=== PATIENT | male | born 1975 | race Caucasian/White ===

== ENCOUNTER 2017-01-22 20:55 | Emergency (ER) | payer BC, OTHER ==
[~2017-01-22] VITALS: Ht 175.3 cm; Wt 89.3 kg
[2017-01-22 20:59] VITALS: TEMP 36.9; Ht 175.3 cm; Wt 89.3 kg
[2017-01-22] MEDS ORDERED: ONDANSETRON INJ 2 MG/ML 2 ML VIAL IV STA (21:09)
[2017-01-22] MEDS ORDERED: GLUCAGON FOR INJ 1 MG VIAL IV ONE (21:09)
[2017-01-22] MEDS ORDERED: SODIUM CHLORIDE 0.9% 1000ML 1,000 ML IV STA (21:09)
[2017-01-22] MEDS ORDERED: GLUCAGON INJ 1 MG in SYRINGE 0 ML IV STA (21:09)
--- NOTE | 2017-01-22 21:15 | EMERGENCY ROOM VISIT NOTE ---
History Report prepared by Victorino: Rey Harris Under the Supervision of: Dr. Luc Jara D.O. First contact with patient: 21:05 Chief Complaint: GI ASSESSMENT Stated Complaint: SPITTING/VOMITING STOMACH ACID, HIC UPS WON'T STOP Nursing Triage Summary: pt c/o acid reflux for a while. reports increased saliva production, ongoing for 2 hours. "it's food related, only happens when I'm eating. it feels like I can' t swallow it all the way down". History of Present Illness The patient is a 41 year old male who presents to the Emergency Room with complaints of persistent acid reflux symptoms that started 2 hours ago. The patient notes that he has a history of acid reflux-like symptoms for the past year. He states that it usually only ever happens after a meal. He will start to spit up and sometimes vomit some bile for 5-10 minutes. His symptoms usually resolve on their own after a few minutes pass. Tonight, he went out to dinner and was eating salad and steak. He notes that he started having the spitting up and vomiting soon after his first bite of steak. He notes he hasn't been able to clear it for the past 2 hours and is still experiencing symptoms. The patient denies abdominal pain at this time. Source of History: patient Onset: 2 hours ago Position: other (GI) Timing: other (persistent) Associated Symptoms: + vomiting, No abdominal pain Note: Other associated symptoms: spitting up Review of Systems See HPI for pertinent positives & negatives. A total of 10 systems reviewed and were otherwise negative. Family History FH: diabetes mellitus FH: hypertension Social History Smoking Status: Never Smoker Marital Status: Housing Status: lives with family Occupation Status: employed Current/Historical Medications No Active Prescriptions or Reported Meds Allergies Coded Allergies: No Known Allergies (Unverified , 01/22/17) Physical Exam Vital Signs Date Time Temp Pulse Resp B/P Pulse Ox O2 Delivery O2 Flow Rate FiO2 01/22/17 21:17 Room Air 01/22/17 20:59 36.9 86 18 131/89 96 Room Air Physical Exam GENERAL: Patient is awake alert, mildly anxious appearing, overall comfortable. EYES: The conjunctivae are clear. The pupils are round and reactive. EARS, NOSE, MOUTH AND THROAT: The nose is without any evidence of any deformity. Mucous membranes are moist tongue is midline NECK: The neck is nontender and supple. RESPIRATORY: Normal respiratory effort is noted there is no evidence of wheezing rhonchi or rales CARDIOVASCULAR: Regular rate and rhythm noted there no murmurs rubs or gallops normal S1 normal S2 GASTROINTESTINAL: The abdomen is soft. Bowel sounds are present in all quadrants. Abdomen is nontender MUSCULOSKELETAL/EXTREMITIES: There is no evidence of gross deformity full range of motion is noted in the hips and shoulders SKIN: There is no obvious evidence of any rash. There are no petechiae, pallor or cyanosis noted. NEUROLOGIC: Patient is awake alert and oriented x3 Medical Decision & Procedures ER Provider Diagnostic Interpretation: X-ray results as stated below per interpretation by me and the radiologist. CHEST ONE VIEW PORTABLE CLINICAL HISTORY: Abdominal pain. COMPARISON STUDY: No previous studies for comparison. FINDINGS: Lung volumes are normal. Lungs are clear. There is no pneumothorax or pleural effusion. Cardiac size is normal. Mediastinal contours are normal. There is no evidence of pulmonary edema. No lucency is identified under the hemidiaphragms to suggest pneumoperitoneum on this exam. IMPRESSION: No acute cardiopulmonary findings. Electronically signed by: Joshua Mackay M.D. 01/22/2017 9:32 PM Dictated Date/Time: 01/22/2017 9:31 PM Laboratory Results 01/22/17 21:17 Red Blood Count 5.14, Mean Corpuscular Volume 87.9, Mean Corpuscular Hemoglobin 31.7, Mean Corpuscular Hemoglobin Concent 36.1, Mean Platelet Volume 9.4, Neutrophils (%) (Auto) 56.1, Lymphocytes (%) (Auto) 28.3, Monocytes (%) (Auto) 9.4, Eosinophils (%) (Auto) 5.6, Basophils (%) (Auto) 0.4, Neutrophils # (Auto) 4.67, Lymphocytes # (Auto) 2.36, Monocytes # (Auto) 0.78, Eosinophils # (Auto) 0.47, Basophils # (Auto) 0.03 01/22/17 21:17 Test 01/22/17 21:17 White Blood Count 8.33 K/uL (4.8-10.8) Red Blood Count 5.14 M/uL (4.7-6.1) Hemoglobin 16.3 g/dL (14.0-18.0) Hematocrit 45.2 % (42-52) Mean Corpuscular Volume 87.9 fL (80-100) Mean Corpuscular Hemoglobin 31.7 pg (25-34) Mean Corpuscular Hemoglobin Concent 36.1 g/dl (32-36) Platelet Count 251 K/uL (130-400) Mean Platelet Volume 9.4 fL (7.4-10.4) Neutrophils (%) (Auto) 56.1 % Lymphocytes (%) (Auto) 28.3 % Monocytes (%) (Auto) 9.4 % Eosinophils (%) (Auto) 5.6 % Basophils (%) (Auto) 0.4 % Neutrophils # (Auto) 4.67 K/uL (1.4-6.5) Lymphocytes # (Auto) 2.36 K/uL (1.2-3.4) Monocytes # (Auto) 0.78 K/uL (0.11-0.59) Eosinophils # (Auto) 0.47 K/uL (0-0.5) Basophils # (Auto) 0.03 K/uL (0-0.2) RDW Standard Deviation 40.0 fL (36.4-46.3) RDW Coefficient of Variation 12.4 % (11.5-14.5) Immature Granulocyte % (Auto) 0.2 % Immature Granulocyte # (Auto) 0.02 K/uL (0.00-0.02) Prothrombin Time 11.7 SECONDS (9.0-12.0) Prothromb Time International Ratio 1.1 (0.9-1.1) Activated Partial Thromboplast Time 28.5 SECONDS (21.0-31.0) Partial Thromboplastin Ratio 1.1 Anion Gap 4.0 mmol/L (3-11) Est Creatinine Clear Calc Drug Dose 109.7 ml/min Estimated GFR () 111.1 Estimated GFR (Non- 95.9 BUN/Creatinine Ratio 13.4 (10-20) Calcium Level 8.8 mg/dl (8.5-10.1) Total Bilirubin 0.4 mg/dl (0.2-1) Direct Bilirubin 0.1 mg/dl (0-0.2) Aspartate Amino Transf (AST/SGOT) 13 U/L (15-37) Alanine Aminotransferase (ALT/SGPT) 20 U/L (12-78) Alkaline Phosphatase 66 U/L (45-117) Total Protein 7.3 gm/dl (6.4-8.2) Albumin 4.2 gm/dl (3.4-5.0) Lipase 222 U/L (73-393) Laboratory results per my review. Medications Administered Medications (Trade) Dose Ordered Sig/Otis Route Start Time Stop Time Status Last Admin Dose Admin Sodium Chloride (Nss 1000ml) 1,000 ml @ 999 mls/hr Q1H1M STAT IV 01/22/17 21:09 01/22/17 22:09 DC 01/22/17 21:31 999 MLS/HR Ondansetron HCl (Zofran Inj) 4 mg NOW STAT IV 01/22/17 21:09 01/22/17 21:11 DC 01/22/17 21:31 4 MG Glucagon (Glucagon Inj) 1 mg ONE ONCE IV 01/22/17 21:09 01/22/17 21:25 DC 01/22/17 21:31 1 MG ED Course 2102: The patient was evaluated in room B10. A complete history and physical examination were performed. 2108: Ordered Glucagon 1 mg IV, Zofran Inj 4 mg IV, NSS 1000 ml @ 999 mls/hr IV. 2113: At this time, I discussed the patient's case with Dr. Silver Carrasco and he agreed to come in to see the patient. 2138: At this time, the patient vomited the foreign body. He started feeling much better after the episode. 2141: At this time, I called back Dr. Silver Carrasco and updated on him on the patient's case saying the he relieved the occlusion. Dr. Sheppard said that he would follow up with the patient in the clinic. 2152: Upon reevaluation, the patient is resting comfortably. I discussed the results and treatment plan with him. He verbalized agreement of the treatment plan. The patient was discharged home. Medical Decision Nursing notes reviewed. The patient is a 41-year-old male who presented to the emergency department for an evaluation of dysphagia. The patient states that over the last 12 months he' s had intermittent episodes of dysphagia. The patient states that he's had esophageal foreign bodies which have been intermittent. The patient states normally these resolve on their own. He presented to the emergency department today after one which did not resolve for over 2 hours. The patient appeared to have difficulty clearing his secretions and was spitting into a emesis bag. I discussed his case with the on-call fishing line winding machine operator. Initially he planned on coming to the emergency department to do an endoscopy on the patient to evaluate the cause of the esophageal foreign body sensation. The patient was treated with IV fluids IV antiemetics and glucagon in the emergency department. He had an episode of emesis which resolved the esophageal foreign body. I discussed the patient's case again with the on-call fishing line winding machine operator. I've encouraged the patient to continue with a clear liquid diet as well as a soft diet. He was also encouraged to start a proton pump inhibitor. He was also encouraged to follow-up with the fishing line winding machine operator as soon as possible but return to the emergency department immediately if symptoms change worsen or the need arises. Consults Time Called: 2109 Consulting Physician: Dr. Sheppard - Gastroenterology [place] Returned Call: 2113 At this time, I discussed the patient's case with Dr. Sheppard and he agreed to come in to see the patient. Additional Consults: Time Called: 2138 Consulted Physician: Dr. Silver Carrasco Returned Call: 2141 Additional Comments: At this time, I called back Dr. Sheppard and updated on him on the patient's case saying the he relieved the occlusion. Dr. Sheppard said that he would follow up with the patient in the clinic. Impression Primary Impression: Esophageal foreign body Additional Impressions: Dysphagia Chest pain Scribe Attestation The scribe's documentation has been prepared under my direction and personally reviewed by me in its entirety. I confirm that the note above accurately reflects all work, treatment, procedures, and medical decision making performed by me. Departure Information Dispostion Home / Self-Care Prescriptions No Active Prescriptions or Reported Meds Referrals No Doctor, Assigned (PCP) Forms HOME CARE DOCUMENTATION FORM, IMPORTANT VISIT INFORMATION Patient Instructions Dysphagia, ED Foreign Body Esophageal Rslv, My [facility] Additional Instructions Call the fishing line winding machine operator in the morning to schedule a follow-up appointment. I would recommend a clear liquid diet or soft diet. Continue all medications as prescribed. Return to the emergency Department immediately if symptoms change worsen or the need arises. I would recommend starting an [id number] proton pump inhibitor such as Prilosec OTC. Problem Qualifiers Primary Impression: Esophageal foreign body Encounter type: initial encounter Qualified Codes: T18.108A - Unspecified foreign body in esophagus causing other injury, initial encounter Additional Impressions: Dysphagia Dysphagia type: unspecified Qualified Codes: R13.10 - Dysphagia, unspecified Chest pain Chest pain type: unspecified Qualified Codes: R07.9 - Chest pain, unspecified
[2017-01-22 21:30] LABS: BASO % 0.4 %; BASO ABS # 0.03 K/uL (0-0.2); COMPLETE YES; EOS % 5.6 %; HEMATOCRIT 45.2 % (42-52); IG% 0.2 %; LYMPH % 28.3 %; LYMPH ABS # 2.36 K/uL (1.2-3.4); MEAN CELL VOLUME 87.9 fL (80-100); MEAN CORPUSCULAR HEMOGLOBIN 31.7 pg (25-34); MEAN CORPUSCULAR HGB CONC 36.1 g/dl (32-36); MEAN PLATELET VOLUME 9.4 fL (7.4-10.4); MONO % 9.4 %; NEUT % 56.1 %; PLATELET COUNT 251 K/uL (130-400); RED BLOOD COUNT 5.14 M/uL (4.7-6.1); WHITE BLOOD COUNT 8.33 K/uL (4.8-10.8)
--- NOTE | 2017-01-22 21:34 | DIAGNOSTIC IMAGING REPORT ---
CHEST ONE VIEW PORTABLE CLINICAL HISTORY: Abdominal pain. COMPARISON STUDY: No previous studies for comparison. FINDINGS: Lung volumes are normal. Lungs are clear. There is no pneumothorax or pleural effusion. Cardiac size is normal. Mediastinal contours are normal. There is no evidence of pulmonary edema. No lucency is identified under the hemidiaphragms to suggest pneumoperitoneum on this exam. IMPRESSION: No acute cardiopulmonary findings. Electronically signed by: Joshua Mackay M.D. 01/22/2017 9:32 PM Dictated Date/Time: 01/22/2017 9:31 PM
[2017-01-22 21:37] LABS: INR 1.1 (0.9-1.1); PARTIAL THROMBOPLASTIN RATIO 1.1; PROTHROMBIN TIME (PATIENT) 11.7 SECONDS (9.0-12.0)
[2017-01-22] MEDS ORDERED: ATROPINE SULFATE 0.1 MG/ML 5ML SYR IV PRN (21:45)
[2017-01-22] MEDS ORDERED: FENTANYL CITRATE INJ 50 MCG/1 ML 2 ML VIAL IV PRN (21:45)
[2017-01-22] MEDS ORDERED: EpHEDrine SULFATE INJ 50 MG/ML AMP IV PRN (21:45)
[2017-01-22] MEDS ORDERED: ONDANSETRON INJ 2 MG/ML 2 ML VIAL IV PRN (21:45)
[2017-01-22 21:47] LABS: BUN/CREATININE RATIO 13.4 (10-20); CREATININE 0.97 mg/dl (0.60-1.40); POTASSIUM 3.5 mmol/L (3.5-5.1)
[2017-01-22 22:04] LABS: CALCIUM 8.8 mg/dl (8.5-10.1)
[2017-01-22 22:16] VITALS: BP 136/91; PULSE 85; O2SAT 97
== END 2017-01-22 22:18 | disposition home or self-care (01) ==
LOC: C.EDB 20:57
DX: T18.108A Unspecified foreign body in esophagus causing other injury, initial encounter (principal); R13.10 Dysphagia, unspecified; R07.9 Chest pain, unspecified; K21.9 Gastro-esophageal reflux disease without esophagitis; R11.10 Vomiting, unspecified; Z82.49 Family history of ischemic heart disease and other diseases of the circulatory system; Z83.3 Family history of diabetes mellitus; X58.XXXA Exposure to other specified factors, initial encounter

== ENCOUNTER → 2017-02-06 | Outpatient (CLI) | payer BC ==
--- NOTE | 2017-02-06 12:04 | DIAGNOSTIC IMAGING REPORT ---
VIDEO SWALLOW HISTORY: Dysphagia R13.13 TECHNIQUE: Video fluoroscopic evaluation of swallowing was performed in the AP and lateral projections by the speech pathology staff. The patient is fed nectar-thick and thin liquid barium, a barium coated wafer, and barium pudding. FLUOROSCOPY TIME: 1.5 minutes. COMPARISON STUDY: None. FINDINGS: There is normal hyoid excursion and epiglottic deflection. No significant penetration or aspiration identified. Swallowing function is within normal limits. IMPRESSION: 1. Normal study. 2. Please see the speech pathologist report for detailed findings and recommendations. Electronically signed by: Javier Mccabe M.D. 02/06/2017 12:02 PM Dictated Date/Time: 02/06/2017 12:02 PM
--- NOTE | 2017-02-06 13:05 | SWALLOWING EVALUATION ---
REFERRING SPEECH PATHOLOGIST: n/a HISTORY: This 42 year-old male was referred for a VFSS at [facility] in order assess oral-pharyngeal swallowing. The patient presented to the ED with esophageal foreign body on 01/22/17. It eventually cleared with emesis; however, the patient reported that this has been occurring intermittently for ~1 year. When his esophagus is impacted the patient experiences excessive salivation, hiccoughs, and emeses. The patient has no other significant PMH. He denies feeling heartburn or other typical s/s GERD, but was placed on a PPI recently and has had no episodes of esophageal obstruction since then. Currently the patient's diet level is regular. PROCEDURE: The patient was seen in the Radiology Department of [facility] for the VFSS. Cursory examination of the oral cavity revealed adequate dentition. Movement of the articulators was WNL. The patient was seated on a stool and was viewed in both the Anterior-Posterior (A-P) and Lateral planes. Volitional phonation exercises completed in the A-P plane revealed bilateral vocal fold movement and vocal intensity within functional limits. In the lateral plane, the patient was given the following boluses: 1 tsp. thin liquid barium x 2, single swallow thin liquid barium self-presented from a cup, sequential swallows of thin liquid barium self-presented from a cup, 1 tsp. nectar-thick liquid barium, single swallow nectar-thick liquid barium self-presented from a cup, 1 tsp. barium pudding, and 1 club cracker with barium pudding. The patient was then repositioned into the A-P plane and given 1 tsp. barium pudding. RESULTS: Oral Stage: Labial seal, oral bolus hold, mastication, and bolus transport were all normal. There was no oral bolus retention after the swallow. The pharyngeal swallow was initiated when the bolus head was at the posterior angle of the ramus. The oral stage of the swallow was WNL. Pharyngeal Stage: Soft palate elevation, laryngeal elevation, anterior hyoid excursion, epiglottic inversion, laryngeal vestibular closure, pharyngeal stripping wave, and pharyngeal contraction were complete. There was complete distention and duration of PES opening and complete tongue base retraction. There was no pharyngeal bolus retention after the swallow. There was no penetration or aspiration during this study. The pharyngeal stage of the swallow was WNL. Esophageal Stage: Trace-mild bolus retention in the mid-esophagus as a pudding bolus transited the esophagus. Minimized with a dry swallow. SUMMARY/RECOMMENDATIONS: This patient presents with normal oral-pharyngeal swallowing function. The following is recommended: 1. Regular as tolerated 2. Complete f/u as scheduled with GI services A summary of the results and recommendations was discussed with the patient immediately following the study. He plans on completing his scheduled EGD next week. Thank you for referral of this patient. Please contact me at if any additional information is needed.
== END | disposition home or self-care (01) ==
LOC: C.RAD 11:13
PROVIDERS: ATTEND Nurse Practitioner Family
DX: R13.13 Dysphagia, pharyngeal phase (principal)